=== PATIENT | female | born 1945 | race Caucasian/White ===

== ENCOUNTER 2022-04-17 17:14 | Emergency (ER) | payer MEDICAID, MEDICARE ==
[2022-04-17] MEDS ORDERED: traMADol HCl 50 MG TAB ONE ×2 (17:50→19:52)
[2022-04-17] MEDS ORDERED: Methocarbamol 500 MG TAB PO SCH (20:00)
== END 2022-04-17 20:02 | disposition home or self-care (01) ==
LOC: NAV ERS 17:14
DX: S32.038A Other fracture of third lumbar vertebra, initial encounter for closed fracture (principal); I10 Essential (primary) hypertension; K21.9 Gastro-esophageal reflux disease without esophagitis; F17.210 Nicotine dependence, cigarettes, uncomplicated; X50.0XXA Overexertion from strenuous movement or load, initial encounter; Z79.01 Long term (current) use of anticoagulants; Z79.899 Other long term (current) drug therapy
CPT/HCPCS: 72128; 72131